=== PATIENT | male | born 1955 | race Caucasian/White ===

== ENCOUNTER 2017-07-01 10:29 | Emergency (ER) | payer SELFPAY ==
[~2017-07-01] VITALS: Ht 175.3 cm; Wt 87.0 kg
[~2017-07-01 10:29] MED LIST: DOCU100T9 PO
[2017-07-01 10:30] VITALS: BP 139/99; PULSE 94; RESP 16; TEMP 98; O2SAT 97
[2017-07-01 11:18] LABS: AUTOMATED NEUTROPHIL # 5.5 TH/MM3 (1.8-7.7); BASOPHIL % 0.5 % (0.0-2.0); EOSINOPHIL % 0.4 % (0.0-4.0); HEMATOCRIT 44.1 % (39.0-51.0); HEMO FLAGS DIFF FINAL; LYMPH % 20.4 % (9.0-44.0); LYMPHOCYTE # 1.5 TH/MM3 (1.0-4.8); MEAN CELL VOLUME 88.1 FL (80.0-100.0); MEAN CORPUSCULAR HEMOGLOBIN 30.9 PG (27.0-34.0); MEAN CORPUSCULAR HGB CONC 35.1 % (32.0-36.0); MONO % 5.9 % (0.0-8.0); NEUT % 72.8 % (16.0-70.0); PLATELET COUNT 254 TH/MM3 (150-450); RED CELL DISTRIBUTION WIDTH 12.9 % (11.6-17.2); WHITE BLOOD COUNT 7.6 TH/MM3 (4.0-11.0)
[2017-07-01 11:39] LABS: ANION GAP 6 MEQ/L (5-15); BICARBONATE 26.9 MEQ/L (21.0-32.0); BLOOD UREA NITROGEN 16 MG/DL (7-18); CHLORIDE 106 MEQ/L (98-107); CREATINE KINASE 82 U/L (39-308); GLOMERULAR FILTRATION RATE 80 ML/MIN (>89); POTASSIUM 4.4 MEQ/L (3.5-5.1); SODIUM (NA) 139 MEQ/L (136-145)
[2017-07-01 11:50] VITALS: O2SAT 98
[2017-07-01] MEDS ORDERED: SODIUM CHLORIDE 0.9% FLUSH 10 ML FLUSH IVF PRN (12:00)
--- NOTE | 2017-07-01 12:01 | PD ---
HPI Chief Complaint: Chest Pain Time Seen by Provider: 11:48 Travel History International Travel<30 days: No Contact w/Intl Traveler<30days: No Traveled to known affect area: No History of Present Illness HPI 61-year-old male with history of HTN, anxiety presents to the ED for evaluation of "a few weeks" history of palpitations of the heart. Patient denies associated chest pain, shortness of breath, nausea, vomiting, diaphoresis. No alleviating or exacerbating factors reported. The patient states is felt as if he has a cold lately with sinus congestion and postnasal drip. He denies fevers , chills, cough, abdominal pain, changes in bowel habits. He endorses intermittent blood on the paper with bowel movements. Last endoscopy/ colonoscopy "at least 10 years ago." He quit smoking approximately 18 years ago. He endorses family history of MT in his grandfather and uncles. He's never had a stress test. PFSH Past Medical History Diminished Hearing: No Hepatitis: Yes (HEP C, treatment wtih interfuron) Hypertension: Yes Inguinal Hernia: Yes Immunizations Current: No Influenza Vaccination: No Past Surgical History Tonsillectomy: Yes Social History Alcohol Use: No Tobacco Use: No Substance Use: No Allergies-Medications (Allergen,Severity, Reaction): Coded Allergies: Sulfa (Sulfonamide Antibiotics) (Unverified Allergy, Severe, Hives, ) paroxetine (Unverified Allergy, Severe, 07/01/17) penicillin G (Unverified Allergy, Severe, 07/01/17) monosodium glutamate (Unverified Allergy, Unknown, 07/01/17) Uncoded Allergies: antianxiety meds (Allergy, Severe, Psychosis, 10/27/13) NARCOTICS (Allergy, Unknown, RECOVERING, 07/01/17) Reported Meds & Prescriptions Reported Meds & Active Scripts Active No Active Prescriptions or Reported Medications Review of Systems Except as stated in HPI: all other systems reviewed are Neg Physical Exam Narrative GENERAL: Well-nourished, well-developed white male in no acute distress. SKIN: Warm and dry. HEAD: Normocephalic. Atraumatic. EYES: No scleral icterus. No injection or drainage. PERRLA. EOMI. ENT: [place] tympanic membranes bilaterally. Nasal mucosa is moist. Oropharynx without erythema, edema or exudate. NECK: Supple, trachea midline. No JVD or lymphadenopathy. CARDIOVASCULAR: Regular rate and rhythm without murmurs, gallops, or rubs. 2+ DP and radial pulses bilaterally. RESPIRATORY: Breath sounds clear and equal bilaterally. No accessory muscle use. GASTROINTESTINAL: Abdomen soft, non-tender, nondistended. + Bowel sounds MUSCULOSKELETAL: No cyanosis, or edema. Patient moves the extremity spontaneously. Moves easily from standing to sitting position. BACK: Nontender without obvious deformity. No CVA tenderness. Data Data Last Documented VS Vital Signs Date Time Temp Pulse Resp B/P (MAP) Pulse Ox O2 Delivery O2 Flow Rate FiO2 07/01/17 14:09 07/01/17 11:50 98 Room Air 07/01/17 10:30 98.0 94 16 Orders Orders Electrocardiogram (07/01/17 11:01) Complete Blood Count With Diff (07/01/17 11:01) Basic Metabolic Panel (Bmp) (07/01/17 11:01) Ckmb (Isoenzyme) Profile (07/01/17 11:01) Troponin I (07/01/17 11:01) Ckmb (Isoenzyme) Profile (07/01/17 11:48) Magnesium (Mg) (07/01/17 11:48) Prothrombin Time / Inr (Pt) (07/01/17 11:48) Act Partial Throm Time (Ptt) (07/01/17 11:48) Troponin I (07/01/17 11:48) Chest, Single Ap (07/01/17 11:48) Ecg Monitoring (07/01/17 11:48) Bilateral Bp Monitoring (07/01/17 11:48) Iv Access Insert/Monitor (07/01/17 11:48) Oximetry (07/01/17 11:48) Sodium Chloride 0.9% Flush (Ns Flush) (07/01/17 12:00) Mandatory Outpatient Referral (07/01/17 13:42) Ed Discharge Order (07/01/17 13:43) Labs Laboratory Tests Test 07/01/17 11:00 07/01/17 12:26 White Blood Count 7.6 TH/MM3 Red Blood Count 5.00 MIL/MM3 Hemoglobin 15.5 GM/DL Hematocrit 44.1 % Mean Corpuscular Volume 88.1 FL Mean Corpuscular Hemoglobin 30.9 PG Mean Corpuscular Hemoglobin Concent 35.1 % Red Cell Distribution Width 12.9 % Platelet Count 254 TH/MM3 Mean Platelet Volume 8.2 FL Neutrophils (%) (Auto) 72.8 % Lymphocytes (%) (Auto) 20.4 % Monocytes (%) (Auto) 5.9 % Eosinophils (%) (Auto) 0.4 % Basophils (%) (Auto) 0.5 % Neutrophils # (Auto) 5.5 TH/MM3 Lymphocytes # (Auto) 1.5 TH/MM3 Monocytes # (Auto) 0.5 TH/MM3 Eosinophils # (Auto) 0.0 TH/MM3 Basophils # (Auto) 0.0 TH/MM3 CBC Comment DIFF FINAL Differential Comment Blood Urea Nitrogen 16 MG/DL Creatinine 0.96 MG/DL Random Glucose 120 MG/DL Calcium Level 8.9 MG/DL Sodium Level 139 MEQ/L Potassium Level 4.4 MEQ/L Chloride Level 106 MEQ/L Carbon Dioxide Level 26.9 MEQ/L Anion Gap 6 MEQ/L Estimat Glomerular Filtration Rate 80 ML/MIN Total Creatine Kinase 82 U/L 76 U/L Troponin I LESS THAN 0.02 NG/ML LESS THAN 0.02 NG/ML Prothrombin Time 11.0 SEC Prothromb Time International Ratio 1.0 RATIO Activated Partial Thromboplast Time 25.7 SEC Magnesium Level 2.1 MG/DL MDM Medical Decision Making Medical Screen Exam Complete: Yes Emergency Medical Condition: Yes Differential Diagnosis Arrhythmia versus metabolic derangement versus anemia versus other Narrative Course 61-year-old male with history of HTN, anxiety presents to the ED for evaluation of "a few weeks" history of palpitations of the heart. Patient denies associated chest pain, shortness of breath, nausea, vomiting, diaphoresis. He denies fevers, chills, cough, abdominal pain, changes in bowel habits. He endorses intermittent blood on the paper with bowel movements. Last endoscopy/ colonoscopy "at least 10 years ago." He quit smoking approximately 18 years ago. He endorses family history of MT in his grandfather and uncles. He's never had a stress test. Patient is hypertensive on presentation. On exam he is anxious appearing. No appreciable M/R/G. Chest CTAB. Abdomen soft nontender, no lower extremity edema. EKG rate 84, sinus rhythm. VT interval 155, QRS 101, QTC 399 ms. Normal axis. No ST changes. Reviewed by Dr. Workman. CXR: Atraumatic changes in the left lower lobe, otherwise unremarkable per radiology read. Cardiac enzymes negative Physical concerning abnormalities of CBC, CMP. I suspect PVCs or possibly an intermittent arrhythmia. We will place a mandatory outpatient consult with the park services specialist and referred the patient to the [facility] for further evaluation. I discussed the results of the workup and plan with the patient and his . They are reassured by today's workup and agreeable to outpatient follow-up. The patient is stable and discharged home. Diagnosis Primary Impression: Intermittent palpitations Referrals: [facility] Patient Instructions: General Instructions, Heart Palpitations (ED) Additional Instructions: Rest, hydrate. Return to normal, gentle activity as tolerated. A mandatory cardiology consult has been placed on your behalf. Expect a phone call from the physician's office in the next week or so. Follow-up with the [facility] as discussed. Return to the ED for worsening symptoms or any urgent or emergent medical condition. Scripts No Active Prescriptions or Reported Meds Disposition: 01 DISCHARGE HOME Condition: Stable Elena Cabrera Jul 01, 2017 12:01
--- NOTE | 2017-07-01 12:25 | RADRPT ---
EXAM DATE/TIME: 07/01/2017 12:05 [facility] COMPARISON: No previous studies available for comparison. INDICATIONS : Chest pressure mid sternal, with heart palpitations. MEDICAL HISTORY : None. SURGICAL HISTORY : None. ENCOUNTER: Initial ACUITY: 3 days PAIN SCORE: 7/10 LOCATION: chest FINDINGS: A single view of the chest demonstrates the lungs to be symmetrically aerated without evidence of mas s, infiltrate or effusion. Minimal linear atelectatic changes laterally in the left lower lobe. The cardiomediastinal contours are unremarkable. Osseous structures are intact. CONCLUSION: 1. Minimal linear atelectatic changes laterally in the left lower lobe. 2. Otherwise negative. No confluent infiltrate. Isac Hebert MD on July 01, 2017 at 12:23 Board Certified Radiologist. This report was verified electronically.
[2017-07-01 12:59] LABS: APTT (PATIENT) 25.7 SEC (24.3-30.1)
[2017-07-01 13:07] LABS: MAGNESIUM 2.1 MG/DL (1.5-2.5)
[2017-07-01 13:13] LABS: CREATINE KINASE 76 U/L (39-308)
--- NOTE | 2017-07-01 16:18 | PD ---
Data Data Last Documented VS Vital Signs Date Time Temp Pulse Resp B/P (MAP) Pulse Ox O2 Delivery O2 Flow Rate FiO2 07/01/17 14:09 07/01/17 11:50 98 Room Air 07/01/17 10:30 98.0 94 16 Orders Orders Electrocardiogram (07/01/17 11:01) Complete Blood Count With Diff (07/01/17 11:01) Basic Metabolic Panel (Bmp) (07/01/17 11:01) Ckmb (Isoenzyme) Profile (07/01/17 11:01) Troponin I (07/01/17 11:01) Ckmb (Isoenzyme) Profile (07/01/17 11:48) Magnesium (Mg) (07/01/17 11:48) Prothrombin Time / Inr (Pt) (07/01/17 11:48) Act Partial Throm Time (Ptt) (07/01/17 11:48) Troponin I (07/01/17 11:48) Chest, Single Ap (07/01/17 11:48) Ecg Monitoring (07/01/17 11:48) Bilateral Bp Monitoring (07/01/17 11:48) Iv Access Insert/Monitor (07/01/17 11:48) Oximetry (07/01/17 11:48) Sodium Chloride 0.9% Flush (Ns Flush) (07/01/17 12:00) Mandatory Outpatient Referral (07/01/17 13:42) Ed Discharge Order (07/01/17 13:43) Labs Laboratory Tests Test 07/01/17 11:00 07/01/17 12:26 White Blood Count 7.6 TH/MM3 Red Blood Count 5.00 MIL/MM3 Hemoglobin 15.5 GM/DL Hematocrit 44.1 % Mean Corpuscular Volume 88.1 FL Mean Corpuscular Hemoglobin 30.9 PG Mean Corpuscular Hemoglobin Concent 35.1 % Red Cell Distribution Width 12.9 % Platelet Count 254 TH/MM3 Mean Platelet Volume 8.2 FL Neutrophils (%) (Auto) 72.8 % Lymphocytes (%) (Auto) 20.4 % Monocytes (%) (Auto) 5.9 % Eosinophils (%) (Auto) 0.4 % Basophils (%) (Auto) 0.5 % Neutrophils # (Auto) 5.5 TH/MM3 Lymphocytes # (Auto) 1.5 TH/MM3 Monocytes # (Auto) 0.5 TH/MM3 Eosinophils # (Auto) 0.0 TH/MM3 Basophils # (Auto) 0.0 TH/MM3 CBC Comment DIFF FINAL Differential Comment Blood Urea Nitrogen 16 MG/DL Creatinine 0.96 MG/DL Random Glucose 120 MG/DL Calcium Level 8.9 MG/DL Sodium Level 139 MEQ/L Potassium Level 4.4 MEQ/L Chloride Level 106 MEQ/L Carbon Dioxide Level 26.9 MEQ/L Anion Gap 6 MEQ/L Estimat Glomerular Filtration Rate 80 ML/MIN Total Creatine Kinase 82 U/L 76 U/L Troponin I LESS THAN 0.02 NG/ML LESS THAN 0.02 NG/ML Prothrombin Time 11.0 SEC Prothromb Time International Ratio 1.0 RATIO Activated Partial Thromboplast Time 25.7 SEC Magnesium Level 2.1 MG/DL MDM Supervised Visit with MICKEY: Yes Narrative Course The history, exam, and medical decision-making in the associated midlevel provider note were completed with my assistance. I reviewed and agree with the findings presented. I attest that I had a [id number] encounter with the patient on the same day, and personally performed and documented my assessment and findings in the medical record. *My assessment and Findings: This is a 61-year-old male who presents to the emergency department with intermittent palpitations. He describes the feeling as though his heart is skipping beats and taking a long time to be. He denies any chest pain or difficulty breathing. He was placed on a monitor and an IV was established. Labs were obtained. EKG was reassuring. I suspect he is having either PVCs or intermittent arrhythmia. Patient will be referred to [facility] as an outpatient and mandatory referral will also be placed to cardiology. Diagnosis Primary Impression: Intermittent palpitations Referrals: [facility] Patient Instructions: General Instructions, Heart Palpitations (ED) Departure Forms: Tests/Procedures Additional Instruction: Rest, hydrate. Return to normal, gentle activity as tolerated. A mandatory cardiology consult has been placed on your behalf. Expect a phone call from the physician's office in the next week or so. Follow-up with the [facility] as discussed. Return to the ED for worsening symptoms or any urgent or emergent medical condition. Scripts No Active Prescriptions or Reported Meds Disposition: 01 DISCHARGE HOME Condition: Stable Tessie Workman MD Jul 01, 2017 16:18
--- NOTE | 2017-07-01 21:19 | EKG ---
Date Performed: 07/01/2017 Time Performed: 10:55:31 PTAGE: 61 years EKG: Sinus rhythm NORMAL ECG Compared to prior tracing no significant change DOCTOR: Leah Goodman Interpretating Date/Time 07/01/2017 21:18:56
== END 2017-07-01 14:11 | disposition home or self-care (01) ==
LOC: NEPC 10:29
DX: R00.2 Palpitations (principal); R09.81 Nasal congestion; I10 Essential (primary) hypertension; F41.9 Anxiety disorder, unspecified; Z86.19 Personal history of other infectious and parasitic diseases; Z88.2 Allergy status to sulfonamides; Z88.0 Allergy status to penicillin; Z88.8 Allergy status to other drugs, medicaments and biological substances
CPT/HCPCS: 71010; 80048; 82550; 83735; 84484; 85025; 85610; 85730; 93005